=== PATIENT | female | born 1980 | race Hispanic/Latino ===

== ENCOUNTER 2025-07-29 13:10 | Inpatient (IN) | payer OTHER ==
[~2025-07-29] VITALS: Ht 152.4 cm; Wt 110.7 kg
[2025-07-29 14:26] LABS: BASOPHILS % 1.0 % (0.0-1.0); EOSINOPHILS % 3.3 % (0.0-6.0); LYMPHOCYTES % 21.2 % (18.0-39.1); MONOCYTES % 6.6 % (4.4-11.3); NEUTROPHILS % 67.3 % (38.7-80.0); RED CELL DISTRIBUTION WIDTH 20.9 % (11.7-14.4)
[2025-07-29 14:29] LABS: INR 1.01
[2025-07-29 14:36] LABS: EST GLOMERULAR FILTRATION RATE 109 ML/MIN (>=60)
[2025-07-29] MEDS ORDERED: ONDANSETRON HCL INJ 2MG/ML 2ML 2 MG/ML VIAL IV PRN (15:00)
[2025-07-29] MEDS: SODIUM CHLORIDE 0.9% 1000ML 1,000 ML IV STA (15:27)
[2025-07-29] MEDS ORDERED: ACETAMINOPHEN 325 MG TAB PO PRN (16:00)
[2025-07-29] MEDS ORDERED: DIPHENHYDRAMINE HCL 25 MG CAP PO PRN (16:00)
[2025-07-29] MEDS ORDERED: POTASSIUM CHLORIDE 20 MEQ TAB CR PO PRN (16:00)
[2025-07-29] MEDS ORDERED: HYDRALAZINE HCL 20 MG/ML VIAL IV PRN (16:00)
[2025-07-29] MEDS ORDERED: SIMETHICONE 80 MG CHEW PO PRN (16:00)
[2025-07-29] MEDS ORDERED: BENZONATATE 100 MG CAP PO PRN (16:00)
[2025-07-29] MEDS ORDERED: ALBUTEROL/IPRATROPIUM 3 ML NEB NEB PRN (16:00)
[2025-07-29] MEDS ORDERED: DEXTROSE 50% SYRINGE 50 ML IV PRN (16:00)
[2025-07-29] MEDS ORDERED: DOCUSATE SODIUM 100 MG CAP PO PRN (16:00)
[2025-07-29] MEDS ORDERED: LIDOCAINE 4% PATCH TP PRN (16:00)
[2025-07-29] MEDS: MIDODRINE HCL 5 MG TABLET PO SCH (16:45)
[2025-07-29] MEDS: SODIUM CHLORIDE 0.9% 1000ML 1,000 ML IV SCH (16:55)
[2025-07-29 17:00] VITALS: PULSE 82; RESP 20
[2025-07-29 20:08] VITALS: BP 122/63; PULSE 83; RESP 17; TEMP 98.1; O2SAT 100
[2025-07-29 20:30] VITALS: BP 122/63; PULSE 83; RESP 17; TEMP 98.1; O2SAT 100
[2025-07-29] MEDS ORDERED: MELATONIN 5 MG TABLET PO PRN (21:00)
[2025-07-29 21:29] VITALS: PULSE 83; RESP 16; O2SAT 100
[2025-07-29] MEDS: PANTOPRAZOLE SOD 40 MG TABEC PO SCH (21:44)
[2025-07-29 22:01] VITALS: BP 122/63; PULSE 83; RESP 16; TEMP 98.1; O2SAT 100
[2025-07-29 23:58] VITALS: BP 106/66; PULSE 85; RESP 18; TEMP 98.2; O2SAT 98
[2025-07-30] VITALS (13 sets, daily range): BP systolic 107–168; BP diastolic 60–96; PULSE 64–78; RESP 16–20; TEMP 98.1–98.6; O2SAT 95–100
[2025-07-30 01:01] LABS: % IRON SATURATION 2.0 % (15-50)
[2025-07-30 02:48] LABS: EST GLOMERULAR FILTRATION RATE 112.0 ML/MIN (>=60)
[2025-07-30 05:46] LABS: BASOPHILS % 0.9 % (0.0-1.0); EOSINOPHILS % 4.2 % (0.0-6.0); LYMPHOCYTES % 26.9 % (18.0-39.1); MONOCYTES % 7.8 % (4.4-11.3); NEUTROPHILS % 59.9 % (38.7-80.0); RED CELL DISTRIBUTION WIDTH 20.7 % (11.7-14.4)
[2025-07-30 06:25] LABS: EST GLOMERULAR FILTRATION RATE 112.0 ML/MIN (>=60)
[2025-07-30] MEDS ORDERED: PANTOPRAZOLE SOD 40 MG TABEC PO SCH (07:30)
[2025-07-30] MEDS: SODIUM CHLORIDE 0.9% 250ML 0 ML ONE (08:38)
[2025-07-30] MEDS ORDERED: SODIUM CHLORIDE 0.9% 250ML 250 ML ONE (08:43)
[2025-07-30 09:04] LABS: PLATELET ESTIMATE MODERATELY INCREASED; PLATELET MORPHOLOGY COMMENT NORMAL
[2025-07-30] MEDS: IRON SUCROSE 300 MG in SODIUM CHLORIDE 0.9% 250ML 250 ML IV SCH (12:25)
[2025-07-31] VITALS (9 sets, daily range): BP systolic 107–136; BP diastolic 58–70; PULSE 67–84; RESP 18; TEMP 98–98.5; O2SAT 94–100
[2025-07-31 06:16] LABS: BASOPHILS % 0.6 % (0.0-1.0); EOSINOPHILS % 3.0 % (0.0-6.0); LYMPHOCYTES % 16.0 % (18.0-39.1); MONOCYTES % 7.3 % (4.4-11.3); NEUTROPHILS % 72.2 % (38.7-80.0); RED CELL DISTRIBUTION WIDTH 27.2 % (11.7-14.4)
[2025-07-31 06:46] LABS: EST GLOMERULAR FILTRATION RATE 113.0 ML/MIN (>=60)
[2025-08-03 19:11] LABS: ENDOMYSIAL ANTIBODIES, IGA Negative (Negative)
[2025-08-04 11:49] LABS: TISSUE TRANSGLUTAMINASE IGA AB <2 U/mL (0-3)
== END 2025-07-31 17:45 | disposition home or self-care (01) | DRG 812 ==
LOC: ER 14:03 → ERHOLD 14:51 → MED/SURG2 20:56
PROVIDERS: ADMIT Internal Medicine; ATTEND Internal Medicine
PROC: 30233N1 Transfusion of Nonautologous Red Blood Cells into Peripheral Vein, Percutaneous Approach (ICD-10-PCS; principal; 2025-07-30)
DX: D50.9 Iron deficiency anemia, unspecified (principal); E66.9 Obesity, unspecified; Z68.42 Body mass index [BMI] 45.0-49.9, adult; D75.838 Other thrombocytosis; R01.1 Cardiac murmur, unspecified; Z88.0 Allergy status to penicillin
CPT/HCPCS: 36415; 71045; 80048; 80053; 82550; 82607; 82728; 82746; 82784; 83516; 83540; 83735; 84443; 84466; 84484; 84702; 85014; 85018; 85025; 85045; 85610; 85730; 86256; 86850; 86870; 86880; 86900; 86905; 86920; 93005; 93306; 94799; 99001; 99284; J1756; J2470; J7030; J7050; P9016